=== PATIENT | male | born 1955 | race African-American/Black ===

== ENCOUNTER 2019-01-27 10:47 | Inpatient (IN) | payer BC, OTHER ==
[2019-01-27] MEDS ORDERED: NS 0.9% 1000 ML** 1,000 ML IV ONE ×4 (10:49→15:35)
--- NOTE | 2019-01-27 10:59 | ED ---
Shortness of Breath - HPI Summary HPI Summary: This patient is a 63 year old male brought in by ambulance to [facility] with a chief complaint of SOB since yesterday. Patient states that yesterday, he experienced a cold chill suddenly which took his breath away and left him SOB. The episode repeated again, prompting visit to the ED. The pain is rated 0/ 10 in severity. Symptoms aggravated by nothing. Symptoms alleviated by nothing. Patient additionally reports increased urination and dysuria, which has persisted since 1 week ago, nausea, and vomiting. Patient has a hx of HTN, diabetes. - History of Current Complaint Time Seen by Provider: 01/27/19 10:48 Hx Obtained From: Patient Onset/Duration: Lasting Hours, Lasting Days, Still Present Timing: Constant Dyspnea At: Rest Aggrevating Factors: Nothing Alleviating Factors: Nothing Associated Signs & Symptoms: Negative - Fever - Allergy/Home Medications Allergies/Adverse Reactions: Allergies Allergy/AdvReac Type Severity Reaction Status Date / Time No Known Allergies Allergy Verified 01/27/19 10:51 PMH/Surg Hx/FS Hx/Imm Hx Previously Healthy: No Endocrine/Hematology History: Reports: Hx Diabetes Cardiovascular History: Reports: Hx Atrial Fibrillation, Hx Hypertension Opthamlomology History: Denies: Hx Legally Blind EENT History: Denies: Hx Deafness Infectious Disease History: No Infectious Disease History: Denies: Traveled Outside the [place] in Last 30 Days - Family History Known Family History: Negative: Hypertension - Social History Lives: Alone Alcohol Use: None Hx Substance Use: No Substance Use Type: Reports: None Hx Tobacco Use: No Smoking Status (MU): Never Smoked Tobacco Review of Systems Positive: Shortness Of Breath Positive: Vomiting, Nausea Positive: dysuria, frequency All Other Systems Reviewed And Are Negative: Yes Physical Exam - Summary Physical Exam Summary: Appearance: well appearing, no pain distress Skin: diaphoretic, warm to touch. Head/face: normal Eyes: EOMI, JOSE ENT: mucous membranes moist Neck: supple, non-tender Respiratory: CTA, breath sounds present Cardiovascular: RRR, pulses symmetrical Abdomen: non-tender, soft Bowel Sounds: present Musculoskeletal: strength/ROM intact. Bilateral lower extremity edema 2+ Neuro: normal, sensory motor intact, A&Ox3 Triage Information Reviewed: Yes Vital Signs On Initial Exam: Initial Vitals Temp Pulse Resp BP Pulse Ox 98.3 F 94 20 99/55 99 01/27/19 10:48 01/27/19 10:48 01/27/19 10:48 01/27/19 10:48 01/27/19 10:48 Vital Signs Reviewed: Yes Diagnostics - Vital Signs Vital Signs Temp Pulse Resp BP Pulse Ox 01/27/19 10:48 98.3 F 94 20 99/55 99 - Laboratory Result Diagrams: 01/27/19 11:00 01/27/19 11:00 Lab Statement: Any lab studies that have been ordered have been reviewed, and results considered in the medical decision making process. - Radiology CXR Radiology Interpretation Completed By: Radiologist Summary of Radiographic Findings: CXR reveals, per radiologist, IMPRESSION: NO ACTIVE CARDIOPULMONARY DISEASE. ED physician has reviewed this radiology report. - EKG 1048 Cardiac Rate: NL EKG Rhythm: Sinus Rhythm - 96 BPM Summary of EKG Findings: An EKG, taken 1048, reveals NSR (96 BPM), normal axis, RBBB, nonspecific ST. Course/Dx - Course Course Of Treatment: Nurse's notes reviewed. Diabetic with low-grade fevers and dysuria proved to have UTI. Criteria for severe sepsis with lactate 3.7. Blood pressures and symptoms improved with IV fluids. Started on IV Rocephin and will require admission. Hospitalist team evaluating in the ER. - Diagnoses Differential Diagnosis/HQI/PQRI: Positive: Pneumonia, Other - UTI, sepsis, intra -abdominal infection, DKA Provider Diagnoses: Severe sepsis, UTI (urinary tract infection) - Physician Notifications Discussed Care of Patient With: Chet Davidson - Hospitalist Time Discussed With Above Provider: 12:20 - We discussed patient care with Dr. Davidson (Hospitalist) at 1220 and they agreed to accept the patient. Instructed by Provider To: Admit As Inpatient - Critical Care Time Critical Care Time: 30-74 min Discharge - Sign-Out/Discharge Documenting (check all that apply): Patient Departure Patient Received Moderate/Deep Sedation with Procedure: No - Discharge Plan Condition: Fair Disposition: ADMITTED TO [facility] Referrals: No Primary Care Phys,NOPCP [Primary Care Provider] - - Billing Disposition and Condition Condition: FAIR Disposition: Admitted to [facility] - Attestation Statements Document Initiated by Scribe: Yes Documenting Scribe: Moris Schofield Provider For Whom Scribe is Documenting (Include Credential): Dean Fuentes MD Scribe Attestation: Moris Rosas, scribed for Dean Fuentes MD on 01/27/19 at 1320. Scribe Documentation Reviewed: Yes Provider Attestation: The documentation as recorded by the scribeMoris accurately reflects the service I personally performed and the decisions made by me, Dean Fuentes MD Status of Scribe Document: Viewed
[2019-01-27 11:12] LABS: ABS Basophils 0 10^3/ul (0-0.2); ABS Eosinophils 0 10^3/ul (0-0.6); ABS Lymphocytes 0.1 10^3/ul (1.0-4.8); ABS Monocytes 0 10^3/ul (0-0.8); ABS Neutrophils 7.2 10^3/ul (1.5-7.7); ABS Nucleated RBC 0 10^3/ul; Eosinophil % 0.1 %; Hematocrit 45 % (36-46); Hemoglobin 15.4 g/dL (14.0-18.0); Mean Corpuscular HGB Conc 34 g/dL (31-36); Mean Corpuscular Hemoglobin 30 pg (27-31); Mean Corpuscular Volume 89 fL (80-94); Mean Platelet Volume 7.7 fL (7.4-10.4); Nucleated Red Blood Cells % 0; Platelet Count 147 10^3/uL (150-450); Red Blood Count 5.08 10^6 /uL (4.18-5.48); Red Cell Distribution Width 14 % (10.5-15); White Blood Count 7.4 10^3/uL (3.5-10.8)
[2019-01-27 11:17] LABS: Activated Partial Thrombo Time 33.7 seconds (26.0-36.3); INR 1.67 (0.82-1.09)
[2019-01-27 11:33] LABS: Albumin 3.9 g/dL (3.2-5.2); Albumin/Globulin Ratio 1.2 (1-3); BUN/Creatinine Ratio 16.3 (8-20); C Reactive Protein 57.59 mg/L (<8.01); Calcium 8.9 mg/dL (8.6-10.3); EGFR African American 47.3 (>60); EGFR Non-African American 39.1 (>60); Globulin 3.2 g/dL (2-4); Potassium 4.5 mmol/L (3.5-5.0); Total Bilirubin 0.7 mg/dL (0.2-1.0); Total Protein 7.1 g/dL (6.4-8.9)
[2019-01-27 11:34] LABS: Troponin I 0.03 ng/mL (<0.04)
[2019-01-27] MEDS ORDERED: cefTRIAXone(*) 1 GM in NS 0.9% 50 ML* 50 ML IVPB ONE (11:40)
[2019-01-27 12:09] LABS: Urine Appearance Cloudy; Urine Bacteria 2+ (Absent); Urine Bilirubin Negative (Negative); Urine Blood 3+ (Negative); Urine Color Amber; Urine Glucose Negative (Negative); Urine Ketones Negative (Negative); Urine Nitrite Positive (Negative); Urine Protein 1+(30 mg/dL) (Negative); Urine Red Blood Cell 3+(>10/hpf) (Absent); Urine Specific Gravity 1.012 (1.010-1.030); Urine Squamous Epithelial Cell Present (Absent); Urine Transitional Epithelial Present (Absent); Urine Urobilinogen Negative (Negative); Urine White Blood Cell 3+(>20/hpf) (Absent)
[2019-01-27] MEDS ORDERED: Dextrose 50% Syringe 50 ML* 25 GM/50 ML SYRINGE IV PUSH PRN (13:41)
[2019-01-27 14:08] LABS: Magnesium 1.5 mg/dL (1.9-2.7)
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
[2019-01-27] MEDS: Insulin LISPRO* 1 UNITS UNIT SUBCUT SCH (17:54)
[2019-01-27] MEDS: NS 0.9% 1000 ML** 1,000 ML IV SCH (19:19)
[2019-01-27] MEDS: Acetaminophen TAB* 325 MG PO PRN (20:45)
[2019-01-27] MEDS: Rivaroxaban TAB(*) 20 MG TAB PO SCH (20:46)
[2019-01-27] MEDS: Metoprolol Tartrate TAB* 25 MG PO SCH (20:50)
[2019-01-27] MEDS ORDERED: Magnesium Sulfate IV* 3 GM in NS 0.9% 100 ML* 100 ML IVPB ONE (22:28)
[2019-01-28] MEDS: NS 0.9% 1000 ML** 1,000 ML IV SCH ×2 (01:43→09:40)
[2019-01-28] MEDS: Metoprolol Tartrate TAB* 25 MG PO SCH ×2 (07:21→20:15)
[2019-01-28] MEDS: Acetaminophen TAB* 325 MG PO PRN ×2 (07:21→16:03)
[2019-01-28] MEDS: Insulin LISPRO* 1 UNITS UNIT SUBCUT SCH ×3 (07:25→17:31)
[2019-01-28 08:06] LABS: ABS Basophils 0 10^3/ul (0-0.2); ABS Eosinophils 0.1 10^3/ul (0-0.6); ABS Lymphocytes 0.4 10^3/ul (1.0-4.8); ABS Monocytes 0.5 10^3/ul (0-0.8); ABS Neutrophils 6.1 10^3/ul (1.5-7.7); ABS Nucleated RBC 0 10^3/ul; Hematocrit 41 % (36-46); Hemoglobin 13.6 g/dL (14.0-18.0); Lymphocyte % 5.8 %; Mean Corpuscular HGB Conc 34 g/dL (31-36); Mean Corpuscular Hemoglobin 30 pg (27-31); Mean Corpuscular Volume 90 fL (80-94); Mean Platelet Volume 7.3 fL (7.4-10.4); Nucleated Red Blood Cells % 0.1; Platelet Count 123 10^3/uL (150-450); Red Blood Count 4.54 10^6 /uL (4.18-5.48); Red Cell Distribution Width 14 % (10.5-15); White Blood Count 7.1 10^3/uL (3.5-10.8)
[2019-01-28 08:30] LABS: BUN/Creatinine Ratio 13.7 (8-20); Calcium 7.9 mg/dL (8.6-10.3); EGFR African American 67.3 (>60); EGFR Non-African American 55.6 (>60); Potassium 4.2 mmol/L (3.5-5.0)
[2019-01-28] MEDS ORDERED: cefTRIAXone(*) 1 GM in NS 0.9% 50 ML* 50 ML IVPB SCH (13:00)
[2019-01-28] MEDS ORDERED: Iodixanol* (CONTRAST) 320 MG/ML 100 ML SDV IV ONE (13:15)
--- NOTE | 2019-01-28 13:21 | PN ---
Subjective Date of Service: 01/28/19 Interval History: Pt feels well. Dysuria symptoms and fever resolved. He was dx with Danielle and cardio[place] 3 weeks ago. Has h/o BPH and his urologist is also in [place]. When mentioned to pt that there is a nodule on L kidney pt recalls that he had US witin the past several months showing nodule, but not sure where the study was performed Objective Active Medications: Acetaminophen (Tylenol Tab*) 650 mg PO Q4H PRN PRN Reason: FEVER/PAIN Last Admin: 01/28/19 07:21 Dose: 650 mg Dextrose (D50w Syringe 50 Ml*) 12.5 gm IV PUSH .FOR FS < 60 - SS PRN PRN Reason: FS < 60 Ceftriaxone Sodium 1 gm/ (Sodium Chloride) 50 mls @ 200 mls/hr IVPB Q24H [facility] Last Admin: 01/28/19 12:37 Dose: 200 mls/hr Insulin Human Lispro (Humalog*) 0 units SUBCUT AC [facility]; Protocol Last Admin: 01/28/19 12:13 Dose: Not Given Metoprolol Tartrate (Lopressor Tab*) 75 mg PO BID [facility] Last Admin: 01/28/19 07:21 Dose: 75 mg Rivaroxaban (Xarelto(*)) 20 mg PO 2100 [facility] Last Admin: 01/27/19 20:46 Dose: 20 mg Vital Signs - 8 hr 01/28/19 01/28/19 07:15 08:00 Temperature 98.7 F Pulse Rate 87 Respiratory 20 Rate Blood Pressure 140/74 (mmHg) O2 Sat by Pulse 100 96 Oximetry Oxygen Devices in Use Now: None Appearance: 63 yo M in nAD, aAOx3 Eyes: No Scleral Icterus, PERRLA Ears/Nose/Mouth/Throat: NL Teeth, Lips, Gums, Mucous Membranes Moist Neck: NL Appearance and Movements; NL JVP, Trachea Midline Respiratory: Symmetrical Chest Expansion and Respiratory Effort, Clear to Auscultation Cardiovascular: NL Sounds; No Murmurs; No JVD, RRR Abdominal: NL Sounds; No Tenderness; No Distention, No Hepatosplenomegaly, - - no CVA tenderness b/l Lymphatic: No Cervical Adenopathy Extremities: No Clubbing, Cyanosis, - - chronci trace R ankle edema Skin: No Rash or Ulcers, No Nodules or Sclerosis Neurological: Alert and Oriented x 3, NL Muscle Strength and Tone Result Diagrams: 01/28/19 07:48 01/28/19 07:48 Microbiology and Other Data: Microbiology 01/27/19 11:54 Aerobic Blood Culture - Preliminary Blood Venous No Growth Day 1 Anaerobic Blood Culture - Preliminary No Growth Day 1 01/27/19 11:00 Aerobic Blood Culture - Preliminary Blood Venous No Growth Day 1 Anaerobic Blood Culture - Preliminary No Growth Day 1 Assess/Plan/Problems-Billing Assessment: 63 yo M with h/o recent cardioversion for new dx A. fib 3 weeks ago now with UTI/sepsis - Patient Problems (1) Sepsis Comment: due to UTI cont CEftriaxone Cx pending Renal US showing 2 cm L kidney mass (pt shinks he had an US in the past showing "something similar")CT pending (2) ANNALISA (acute kidney injury) Comment: h/o mild increase in creatinine in past Creat improving Stop IVF, cont to monitor (3) Paroxysmal A-fib Comment: cardioverted 3 weeks ago, now in NSR cont Lopressor, Xarelto (4) DVT prophylaxis Comment: Xarelto Status and Disposition: inpatient
[2019-01-28] MEDS: Rivaroxaban TAB(*) 20 MG TAB PO SCH (20:15)
[2019-01-29 07:04] LABS: BUN/Creatinine Ratio 10.2 (8-20); Calcium 8.8 mg/dL (8.6-10.3); EGFR African American 69.1 (>60); EGFR Non-African American 57.1 (>60); Potassium 4.4 mmol/L (3.5-5.0)
[2019-01-29] MEDS: Metoprolol Tartrate TAB* 25 MG PO SCH (08:27)
[2019-01-29] MEDS: Insulin LISPRO* 1 UNITS UNIT SUBCUT SCH (08:28)
[2019-01-29 08:31] VITALS: BP 144/92
--- NOTE | 2019-01-29 13:13 | DS ---
DISCHARGE SUMMARY: DATE OF ADMISSION: 01/27/19 DATE OF DISCHARGE: 01/29/19 PRIMARY CARE PROVIDER: Back home in [place]. DISCHARGE DIAGNOSES: Sepsis and acute kidney injury due to Escherichia coli cystitis, acute. SECONDARY DIAGNOSES: 1. History of diabetes. 2. History of recently diagnosed atrial fibrillation, status post cardioversion 3 weeks ago, currently on metoprolol and Xarelto. 3. History of obstructive sleep apnea. 4. History of hypertension . 5. History of hepatitis C with completed treatment. MEDICATIONS AT DISCHARGE: Include: 1. Cefdinir 300 mg p.o. b.i.d. for total of 5 days and then stop. The remaining medications are unchanged and include: 1. Janumet one tablet b.i.d. 2. Metoprolol tartrate 75 mg b.i.d. 3. Telmisartan 80 mg daily. 4. Xarelto 20 mg daily. LABORATORY DATA AND STUDIES PERFORMED DURING THE HOSPITAL STAY: Included on : sodium 134, potassium 4.4, chloride 106, carbon dioxide 21, BUN 13, creatinine 1.28. On 01/28/19: white blood cell count of 7.1, hemoglobin of 13.6 , hematocrit of 41, and platelet of 123. Microbiology testing showed negative blood cultures and urine cultures positive for E. coli, intermediate sensitivity to ampicillin. The patient had a renal ultrasound obtained on 01/27/19, which showed "solid left renal mass at 2 x 2 x 1.8 cm, no hydronephrosis." CT of the abdomen and pelvis obtained on 01/28/19, impression: "There are multiple renal cysts with perinephric stranding bilaterally. There was no solid renal parenchymal mass to correspond with the sonographic findings. The sonographic finding appears to correspond to a nonenhancing intermediate attenuation cystic lesion. While this may represent a complex cyst in the setting of neoplasm given the history of sepsis, super infection of the cyst, renal parenchymal abscess is also within the differential. Recommend followup imaging after completion of treatment and consideration of tissue sampling. Hepatomegaly with fatty infiltration of the liver." HOSPITALIZATION COURSE: Salbador Cazares is a 63-year-old male with a history of diabetes and recently diagnosis of AFib with cardioversion, with history of BPH in the past, who presented to the hospital with fevers and urinary symptoms. For further details of the patient's presentation, please see history and physical on the day of admission. Shortly, the patient had acute kidney injury with creatinine up to 1.7 at admission. That resolved to closer to his baseline creatinine of 1.28. The patient stated that his kidney function is slightly impaired at baseline. The patient also was noted to have left renal mass of [address] was showing that this is likely related to a cyst. The patient stated that he is aware that he has a history of an abnormality on his kidney. Unfortunately, he did not recall that he had a CT done in the past and he could not recall where the ultrasound that he had done could have been done. At this point, the recommendation is for the patient to follow up with his primary care provider or urologist in regards to this cystic lesion. In regards to the patient's urinary tract infection and sepsis, the patient's urine culture grew E. coli and he was placed on ceftriaxone during the hospital stay. He is to continue cefdinir for a total of 5 days to complete a total of 7 days course of antibiotics for his UTI. PHYSICAL EXAM AT THE TIME OF DISCHARGE: Blood pressure 144/92, heart rate of 70 and regular, respiratory rate of 20, oxygen saturation 100% on room air, and temperature 97.2. General: The patient is a very pleasant 63-year-old male with a BMI of 45. The patient is in no acute distress. Alert, awake and oriented x3. HEENT: Head atraumatic and normocephalic. Eyes: Pupils are equal reactive to light and accommodation. Oropharynx is clear. Mucosa is moist. Neck: Supple. No JVD. No bruits bilaterally. Cardiovascular: Regular rate and rhythm. No murmur. Respiratory: Clear to auscultation bilaterally. Abdomen: Soft and nontender. Bowel sounds are present in all 4 quadrants. No CVA tenderness on evaluation. Extremities: There is +1 nonpitting pedal edema on the right side and trace pedal edema on the left side , both of the findings as per the patient are chronic. Neuro Evaluation: Speech clear. Cranial nerves II through XII grossly intact. Motor strength is 5/5 bilaterally. Please note that this is a short summary of the patient's hospitalization. Please refer to further medical records for details. The patient is recommended to follow up with his urologist and his primary care provider back home within next week. CONDITION AT DISCHARGE: Stable. Please note that this is a short summary of the patient's hospitalization. Please refer to further medical records for details. [id number]/[facility] #: [id number] [place]
== END 2019-01-29 11:20 | disposition home or self-care (01) | DRG 720 ==
LOC: ED 10:47 → MED 13:35
PROVIDERS: ADMIT Internal Medicine; ATTEND Internal Medicine
DX: A41.9 Sepsis, unspecified organism (principal); N17.9 Acute kidney failure, unspecified; N30.00 Acute cystitis without hematuria; I95.9 Hypotension, unspecified; I48.0 Paroxysmal atrial fibrillation; N28.1 Cyst of kidney, acquired; K76.0 Fatty (change of) liver, not elsewhere classified; B96.20 Unspecified Escherichia coli [E. coli] as the cause of diseases classified elsewhere; E11.9 Type 2 diabetes mellitus without complications; G47.33 Obstructive sleep apnea (adult) (pediatric); I10 Essential (primary) hypertension; N40.0 Benign prostatic hyperplasia without lower urinary tract symptoms; R65.20 Severe sepsis without septic shock; Z86.19 Personal history of other infectious and parasitic diseases; Z79.84 Long term (current) use of oral hypoglycemic drugs; Z79.01 Long term (current) use of anticoagulants; Z79.899 Other long term (current) drug therapy; Z82.49 Family history of ischemic heart disease and other diseases of the circulatory system; Z80.0 Family history of malignant neoplasm of digestive organs
CPT/HCPCS: 36415; 71045; 74178; 76775; 80048; 80053; 81003; 81015; 83605; 83735; 83880; 84484; 85025; 85610; 85730; 86140; 87040; 87077; 87086; 87186; 93005; 99284; A9270-GY; J0696; J3475; Q9967